=== PATIENT | female | born 1940 | race Caucasian/White ===

== ENCOUNTER → 2019-03-23 | Outpatient (CLI) | payer MEDICARE ==
--- NOTE | 2019-03-24 16:32 | CARD ---
MR#: [id number] Date of Study: 03/23/2019 Ordering Physician: EZE SUH, Referring Physician: EZE SUH, Tech: Susan Brand APPROVED REPORT EXAM: Two-dimensional and M-mode echocardiogram with Doppler and color Doppler. Other Information Quality : AverageHR: 71bpm Technically limited study due to body habitus. INDICATION Hypertension/HCVD RISK FACTORS Hyperlipidemia 2D DIMENSIONS RVDd3.3 (2.9-3.5cm)Left Atrium(2D)3.6 (1.6-4.0cm) IVSd1.3 (0.7-1.1cm)Aortic Root(2D)3.3 (2.0-3.7cm) LVDd4.7 (3.9-5.9cm)PWd1.4 (0.7-1.1cm) LVDs3.4 (2.5-4.0cm)FS (%) 28.3 % SV55.7 mlLVEF(%)54.6 (>50%) Aortic Valve AoV Peak Matthias.148.1cm/sAoV VTI31.3cm AO Peak GR.8.8mmHgLVOT Peak Matthias.94.6cm/s LVOT VTI 21.56cmAO Mean GR.5mmHg Mitral Valve MV E Hjmucpoi48.2cm/sMV DECEL MIEQ461rg MV A Ckupegjc729.4cm/sE/A Ratio0.6 Pulmonary Valve PV Peak Gwugkqqn81.9cm/sPV Peak Grad.2mmHg Tricuspid Valve TR P. Flnfxpax043mb/sRAP RPCJEMVQ1skGm TR Peak Gr.95ttUlFKME69bzUl Pulmonary Vein S1 Duyjidau52.5cm/sD2 Ovljydlr97.0cm/s LEFT VENTRICLE The left ventricle is normal size. There is moderate concentric left ventricular hypertrophy. The lef t ventricular systolic function is normal. The Ejection Fraction is 55%. There is normal LV segmental wall motion. Transmitral Doppler flow pattern is Grade I-abnormal relaxation pattern. RIGHT VENTRICLE The right ventricle is normal size. There is normal right ventricular wall thickness. The right ventr icular systolic function is normal. ATRIA The left atrium is borderline dilated. The right atrium size is normal. The interatrial septum is int act with no evidence for an atrial septal defect or patent foramen ovale as noted on 2-D or Doppler i maging. AORTIC VALVE The aortic valve is normal in structure and function. Doppler and Color Flow revealed trace aortic re gurgitation. There is no significant aortic valvular stenosis. MITRAL VALVE The mitral valve is normal in structure and function. There is no evidence of mitral valve prolapse. There is no mitral valve stenosis. Doppler and Color-flow revealed trace mitral regurgitation. TRICUSPID VALVE The tricuspid valve is normal in structure and function. Doppler and Color Flow revealed trace tricus pid regurgitation with an estimated PAP of 28 mmHg. There is no tricuspid valve stenosis. PULMONIC VALVE The pulmonic valve is not well visualized. Doppler and Color Flow revealed trace pulmonic valvular re gurgitation. GREAT VESSELS The aortic root is normal in size. The IVC was not well visualized. PERICARDIAL EFFUSION There is no evidence of significant pericardial effusion. Critical Notification Critical Value: No <Conclusion> The left ventricular systolic function is normal. The Ejection Fraction is 55%. There is normal LV segmental wall motion. Transmitral Doppler flow pattern is Grade I-abnormal relaxation pattern. Trace mitral regurgitation. There is no evidence of significant pericardial effusion. Signed by : Eze Suh, Electronically Approved : 03/23/2019 11:11:39
== END | disposition home or self-care (01) ==
LOC: ECHO 09:43
PROVIDERS: ATTEND Internal Medicine Cardiovascular Disease
DX: I11.9 Hypertensive heart disease without heart failure (principal)
CPT/HCPCS: 93306

== ENCOUNTER → 2019-04-01 | Outpatient (CLI) | payer MEDICARE ==
[2019-04-01] MEDS: REGADENOSON 0.4 MG/5 ML DISP.SYRIN. IV ONE (10:30)
--- NOTE | 2019-04-01 11:04 | RAD ---
MR#: [id number] Date of Study: 04/01/2019 Ordering Physician: EZE WALSH Referring Physician: SOCRATES SIN Tech: RT Alexandria Mayo) (N) APPROVED REPORT Test Type: Pharmacological Stress Nurse/Tech: RT Gael (Yazmin) (N) Test Indications: elevated calcium score Cardiac History: none Medications: see EHR Medical History: hypertension Resting Heart Rate: 65 bpm Resting Blood Pressure: 155/73mmHg Pretest Chest Pain: None Nurse/Tech Notes Consent: The procedure was explained to the patient in lay terms. Informed consent was witnessed. Steve eout was entered into [employer]. History and Stress Test performed by RT Gael (R) (N) Pharm. Details Pharmacologic stress testing was performed using 0.4mg per 5ml of regadenoson given intravenously ove r 7-10 seconds. POST EXERCISE Reason for Termination: Infusion complete Max HR: 97 bpm Max Blood Pressure: 155/73mmHg INTERPRETATION Stress EKG Conclusion: sinus rhythm, no acute changes with stress Imaging Protocol IMAGE PROTOCOL: Rest Tc-99m/stress Tc-99m 1 day Rest: Stress: Viability: Radiopharm.Tc99m DztoizqifGh54j Sestamibi Qzse26yBc 34mCi Duration 15min. 10min. Img Date 04/01/2019 04/01/2019 Inj-Img Bohf32zxd. 60min. Rest Admin Site:IV - Right HandAdministrator: RT Kelby (Yazmin)(N) Stress Admin Site: IV - Right HandAdministrator: RT Kelby (Yazmin)(N) STRESS DATA End Diast. Vol.73.0mlAv. Heart Rate72.0bpm End Syst. Vol.17.0mlCO Index BSA4.0L/min Myocardial Lrvi336.0gEject. Nqfsjbeq38.0% Stress Rates Pk. Fill Rate3.28EDV/secLVtime Pk. Fill 165.33msec Pk. Empty Rate4.15ESV/secLVtime Pk. Vnzjp533.21msec / Pk. Fill1.69EDV/sec Stress Scores Regional WT1.00Summed WT3.00 Regional WM0.00Summed WM0.00 The rest and stress images show normal perfusion, normal contraction and thickening. LV Perf. Quant 17 Seg. SSS1.00 17 Seg. SRS1.00 17 Seg. SDS0.00 Stress Defect Extent (% LAD)0.00Rest Defect Extent (% LAD)0.00Rev. Defect Extent (% LAD)0.00 Stress Defect Extent (% LCX) 2.50Rest Defect Extent (% LCX)0.00Rev. Defect Extent (% LCX)0.00 Stress Defect Extent (% RCA)0.00Rest Defect Extent (% RCA)0.00Rev. Defect Extent (% RCA)0.00 Stress Defect Extent (% RICARDO)1.10Rest Defect Extent (% RICARDO)0.00Rev. Defect Extent (% RICARDO)0.00 Other Information Quality:Good Risk Assessment: Low Risk Conclusion 1. No evidence of EKG changes with stress testing. 2. Normal perfusion at stress/rest. 3. Low risk study. 4. EF > 60%. Signed by : Daryn Billingsley, Electronically Approved : 04/01/2019 11:03:53
== END | disposition home or self-care (01) ==
LOC: NM 07:42
PROVIDERS: ATTEND Internal Medicine Cardiovascular Disease
DX: I25.10 Atherosclerotic heart disease of native coronary artery without angina pectoris (principal); I10 Essential (primary) hypertension
CPT/HCPCS: 78452; 93017; A9500; J2785